=== PATIENT | male | born 1970 | race Caucasian/White ===

== ENCOUNTER 2019-03-05 04:30 | Inpatient (IN) | payer BC, SELFPAY ==
[2019-03-05] VITALS (18 sets, daily range): BP systolic 113–154; BP diastolic 75–108; PULSE 88–123; RESP 12–26; TEMP 36.4–37.2; O2SAT 88–865; BMI 30.8; BMI 29.5
--- NOTE | 2019-03-05 04:44 | RAD_ITS ---
HISTORY: left foot and ankle pain after fall COMPARISON: None FINDINGS: XR left foot 2 views Crosstable lateral view obtained for the AP projection of the left foot. Left ankle fracture dislocation with posterior dislocation of the foot in relation to the distal talus. Left ankle trimalleolar fracture. At the foot, oblique fracture of the proximal left second metatarsal with mild lateral angulation of the distal fracture fragment. Additional transverse nondisplaced fracture of the proximal left third metatarsal. The metatarsals show no suspicious displacement to suggest Lisfranc type injury. No dislocation of the foot. Small plantar calcaneal spur. The plantar arch is maintained. RAD/Foot 2 Views IMPRESSION: 1. Acute fracture of the proximal left second and third metatarsals. No Lisfranc type dislocations seen. 2. Left ankle fracture dislocation. Details above. at 0601 Reported and signed by: Srini Mcfarland MD Electronically Signed: Srini Mcfarland, at 6:00 EDT Tel , Service support ,
--- NOTE | 2019-03-05 05:05 | RAD_ITS ---
HISTORY: left foot and ankle pain after fall COMPARISON: None FINDINGS: XR left ankle 2 views Crosstable lateral view obtained with partial obscuration of the left fibula by blanket-like material. Left ankle trimalleolar fracture dislocation with posterior dislocation of the foot in relation to the distal talus. Comminuted fracture of the medial malleolus and additional fractures of the posterior malleolus and distal left fibula. The fibular fracture is not well seen and appears to represent a comminuted fracture including butterfly fracture fragment with posterior displacement and posterior angulation of the major distal fracture fragment. RAD/Ankle 2 Views IMPRESSION: Left ankle fracture dislocation with trimalleolar fracture. Details above. at 0524 Reported and signed by: Srini Mcfarland MD Electronically Signed: Srini Mcfarland, at 5:54 EDT Tel , Service support ,
[2019-03-05] MEDS: Propofol 200 MG/20 ML Vial IV BOLUS (05:25)
--- NOTE | 2019-03-05 05:32 | ED.RN ---
0526 FOOT/ANKLE REDUCED BY DR. SARAVIA. PT HAD SEIZURE WITH EMESIS. SUCTION PROVIDED. CALLED FOR ADDITIONAL STAFF. PT BECAME CYANIC, USED AMBU-BAG FOR AIRWAY SUPPORT WITH RT AT BEDSIDE. 0532 2MG OF ATIVAN GIVEN BY MARIA DOLORES Rudolph RN. 0535 PT POST-ICTAL WITH WET COUGH. DR. SARAVIA APPLYING SPLINTING MATERIAL.
[2019-03-05] MEDS: LORazepam 2 MG/ML Syringe IV (05:35)
[2019-03-05] MEDS: Ondansetron 4 MG/2 ML Vial IV (05:35)
--- NOTE | 2019-03-05 05:44 | EKG12_ITS ---
Test Reason : OTHER Blood Pressure : / mmHG Vent. Rate : 106 BPM Atrial Rate : 106 BPM P-R Int : 116 ms QRS Dur : 086 ms QT Int : 350 ms P-R-T Axes : 072 036 071 degrees QTc Int : 464 ms Sinus tachycardia Nonspecific T wave abnormality Abnormal ECG Confirmed by JAMIR BURKETT ([id number]), supervising editor trailer JOSE ARMANDO MUNOZ ([id number]) on 03/10/2019 3:10:43 PM Referred By: RITA Confirmed By:JAMIR BURKETT
--- NOTE | 2019-03-05 05:44 | RAD_ITS ---
HISTORY: aspiration left ankle and left foot fractures EXAM:XR Chest 1 View portable COMPARISON: None FINDINGS: EKG leads in place. Normal heart and mediastinum. No vascular congestion, pleural effusion, or pulmonary infiltration. No pneumothorax. The bony thorax appears intact. RAD/Chest 1 View (Portable) IMPRESSION: No acute cardiopulmonary disease. at 0620 Reported and signed by: Srini Mcfarland MD Electronically Signed: Srini Mcfarland, at 6:19 EDT Tel , Service support ,
--- NOTE | 2019-03-05 05:49 | ED.RN ---
PT CONTINUES POST-ICTAL WITH SNORING RESPIRATIONS AND AROUSAL TO PAIN. NEW ORDERS ENTERED.
--- NOTE | 2019-03-05 05:50 | RAD_ITS ---
HISTORY: left ankle post reduction COMPARISON: Left ankle 0454 hours FINDINGS: XR left ankle 2 views 0551 hours 2 views of the left ankle obtained following closed reduction and cast fixation. Bony detail is limited by the cast material. Successful reduction of the previously seen posterior dislocation of the left foot. Left ankle trimalleolar fracture. The distal fibular fracture is not well seen on the AP view and appears to represent a comminuted, mildly angulated fracture as seen on the lateral view. RAD/Ankle 2 Views IMPRESSION: Left ankle fracture dislocation, status post successful closed reduction of the tibiotalar joint. Cast material in place and this obscures detail. at 0618 Reported and signed by: Srini Mcfarland MD Electronically Signed: Srini Mcfarland, at 6:17 EDT Tel , Service support ,
[2019-03-05 05:59] LABS: Absolute Lymphocyte Count 2.91 X10^3/ul (0.83-4.51); Absolute Neutrophil Count 18.9 X10^3/uL (2.0-7.7); Basophil# 0.05 X10^3/uL; Basophil% 0.2 % (0-1); Eosinophil# 0.36 X10^3/uL; Eosinophils% 1.5 % (0-5); Hematocrit 42.3 % (40-54); Hemoglobin 14.6 g/dl (13.0-16.5); Lymphocyte # 2.91 X10^3/ul (4.0); Lymphocyte % 12.2 % (19-41); Mean Corp Hgb Conc 34.5 g/gl (32-36); Mean Corpuscular Hgb 30.8 pg (27.0-32.0); Mean Corpuscular Volume 89.2 fL (80-94); Mean Platelet Vol. 11.1 fl (6.2-12.0); Monocyte% 6.3 % (0-10); Neutrophil # 18.89 X10^3/uL (2.7-7.7); Neutrophil % 79.5 % (47-70); Platelet Count 211 K/mm3 (150-450); RBC Distribution Width CV 13.1 % (11.6-14.6); RBC Distribution Width SD 42.7 fl (35.1-43.9); Red Blood Count 4.74 M/mm3 (4.6-6.2); White Blood Count 23.8 K/mm3 (4.4-11.0)
[2019-03-05 06:03] LABS: POSITIVE COUNT NO; POSITIVE DIFFERENTIAL NO; POSITIVE MORPHOLOGY NO
[2019-03-05 06:14] LABS: Anion Gap 11 (5-15); BUN 19 mg/dL (7-18); BUN/Creat Ratio 13.7 RATIO (10-20); Calcium,Total 8.3 mg/dL (8.5-10.1); Chloride 107 mmol/L (98-107); Creatinine, Serum 1.39 mg/dL (0.70-1.30); EST Glomerular Filtration Rate 58 mL/min (>60); Est Glom Filt Rate - Afr Amer 70 mL/min (>60); Estimated Creatinine Clearance 61.42 ml/min; Glucose 136 mg/dL (74-106); Potassium 3.7 mmol/L (3.5-5.1); Sodium Level 141 mmol/L (136-145)
[2019-03-05] MEDS: 0.9% Normal Saline 1,000 ML 999 ML IV (06:22)
--- NOTE | 2019-03-05 06:27 | ED.RN ---
PT CONTINUES TO USE OPEN MOUTH BREATHING WITH SNORING RESPIRATIONS. O2 SAT DOWN TO 86%, NON REBREATHER APPLIED WITH O2 BACK UP TO 95%. AROUSAL TO PAINFUL STIMULI ONLY.
--- NOTE | 2019-03-05 06:58 | ED.VISSUMM ---
- ER Visit Summary Date of Service: 03/05/19 Chief Complaint: Left ankle injury History of Present Illness: The patient is a 48 M who presents with a left ankle injury. He was stepping down out of his camper when he twisted his ankle and fell. He was brought in by EMS. He was placed in a vacuum splint and also given IV Dilaudid. His pain is moderate currently. He did have significant improvement with medication. He denies any other injuries. No head injury no loss of consciousness no chest pain back pain or injury to the other extremities. Physical Examination: Afebrile vitals normal No distress Moist mucous membranes Heart regular rate and rhythm Lungs are clear Abdomen soft There is a left ankle deformity he has tenderness diffusely in the ankle as well as the foot he has an easily palpable dorsalis pedis pulse with brisk capillary refill normal sensation he is able to wiggle his toes Test Results: Initial left ankle x-ray does show a trimalleolar ankle fracture dislocation. Foot x-ray shows fractures of the proximal left second and third metatarsals. Repeat ankle x-ray shows successful reduction. Chest x-ray shows no acute process. Labs notable for white count 23.8, creatinine 1.39, alcohol 99. Emergency Department Course and Treatment: After informed consent with discussion of effects and risks of procedural sedation including hypotension or respiratory failure patient underwent procedural sedation with IV propofol. He was given a total of 150 mg of propofol. His ankle was easily reduced. While splinting the ankle however the patient exhibited tonic-clonic seizure-like activity and began to vomit. He rapidly desaturated. He required [id number] ventilation. He was placed on a nonrebreather. I was able to place him in a posterior plaster splint with stirrup at this point laboratory studies EKG chest x-ray were obtained. He does have a leukocytosis of 23.8 which may be reactive. He was also given Unasyn due to concern for aspiration. Patient will be discussed with the hospitalist and admitted for further observation. I did also speak to Dr. Camejo regarding the patient's ankle fracture and foot fracture. Treatment Plan: [] Disposition: Admit Impression: Trimalleolar ankle fracture dislocation Left second and third metatarsal fractures Adverse reaction to propofol Acute respiratory failure Ankle fracture dislocation reduction by emergency physician Splint fabrication by emergency physician This note was generated with Dragon dictation software. It may contain incorrect words, spelling, and punctuation that were not noted in review of the chart prior to signing ED Disposition - Plan for ED Patient: Referrals: Tara Romero MD [Primary Care Provider] -
--- NOTE | 2019-03-05 07:17 | NURSING ---
DR ELLSWORTH FOR DR SARAVIA
--- NOTE | 2019-03-05 07:28 | HP.PCM_ITS ---
Problem List (1) Aspiration into airway Status: Acute (2) Ankle fracture Status: Acute (3) Acute respiratory failure with hypoxia Status: Acute History of Present Illness Date of Admission: 03/05/19 Chief Complaint: Ankle fracture The patient is a 48 year old M who walked out of a camper while slightly intoxicated and twisted his foot on the stairs and fell down the stairs at which point he broke his ankle. In the ER he was given propofol to be able to reduce his ankle and in the after the reduction he seized and possibly aspirated because he became hypoxic and in respiratory distress down to 86% on room air, necessitating being placed on nonrebreather. He continued to have episodes of what appeared to be like a seizure in the ER she was given dose of Ativan. His ankle was successfully reduced and placed in a cast, and the case was discussed with Ortho which did agree to come and see the patient. Past Medical History Allergies bee venom protein (honey bee) Allergy (Verified 03/05/19 04:34) Anaphylaxis propofol Allergy (Verified 03/05/19 05:41) Other SEIZURE pseudoephedrine [From Actifed] Allergy (Verified 03/05/19 04:34) Anaphylaxis triprolidine [From Actifed] Allergy (Verified 03/05/19 04:34) Anaphylaxis Home Medications: Ambulatory Orders Medication Instructions Recorded Atorvastatin Calcium 1 tab PO DAILY 03/05/19 Insulin Aspart [Novolog Flexpen See Protocol SC TIDCM 03/05/19 ([facility])] Insulin Detemir [Levemir ([facility])] 20 units SC QHS 03/05/19 Insulin Detemir [Levemir ([facility])] 30 units SC DAILY 03/05/19 Lisinopril [Zestril] 10 tab PO DAILY 03/05/19 Metformin HCl [Glucophage] 1 tab PO BIDCM 03/05/19 Sertraline HCl [Zoloft] 1 tab PO QHS 03/05/19 Surgical History: - - Carpal tunnel Smoking Status: Current every day smoker Tobacco Use: Cigarettes Alcohol: Occasional Drugs: Marijuana - *Family History Maternal History Items: Diabetes, Heart Disease Paternal History Items: Diabetes, Heart Disease Review of Systems Constitutional: Denies: Chills, Fever, Weight Change HEENT: Denies: Head Aches, Sinus Congestion, Sinus Drainage Cardiovascular: Denies: Chest Pain, Palpitations Respiratory: Denies: Cough, Shortness of breath at rest, Sputum production Gastrointestinal: Denies: Abdominal Pain, Nausea, Vomiting Genitourinary: Denies: Dysuria Musculoskeletal: Reports: Foot Pain, Leg Pain. Denies: Joint Pain, Joint Tenderness Skin: Denies: Rash, Wounds Neurological: Denies: Numbness, Tingling, Focal weakness Psychiatric: Denies: Anxiety, Depression Hematologic/ Lymphatic: Denies: Easy Bruising, Easy Bleeding VTE Information - Inpt Only VTE Present on Admission: No Patient Problems: Active and Suspected Problems Aspiration into airway (Acute) Ankle fracture (Acute) Acute respiratory failure with hypoxia (Acute) - Physical Exam General: Alert, Oriented x3, Cooperative, No apparent distress HEENT: Atraumatic, PERRLA, EOMI, Normocephalic Oral: Moist Mucosa Neck: Supple, No JVD Lungs: Clear to auscultation, Normal air movement, No rhonchi, No wheeze, No rales, Diminished Cardiovascular: Regular rate, Regular Rhythm, Normal S1, Normal S2, No murmurs Abdomen: Soft, Non Tender, Non-Distended, No Hepato-splenomegaly Extremities: No edema, Capillary Refill Less than 3 Seconds, Tenderness - Left ankle. In a cast but is able to feel his toes and wiggle his toes Skin: No rashes, No breakdown Neurological: Neuro grossly intact, Sensory exam intact to light touch and pain Psych/Mental Status: Normal Affect, Appropriate Vital Signs Temp Pulse Resp BP Pulse Ox 98.6 F 102 H 23 H 141/90 H 98 03/05/19 04:31 03/05/19 07:07 03/05/19 07:07 03/05/19 07:07 03/05/19 07:07 Oxygen Flow Rate (L/min) [1] 2 Oxygen Flow Rate (L/min) 6 Oxygen Delivery Method [1] Nasal Cannula Oxygen Delivery Method [2] Ambu-Bag Oxygen Delivery Method Nasal Cannula Weight: 196 lb 10.437 oz Body Mass Index (BMI) 30.8 Laboratory Tests Past 24 Hrs 03/05/19 03/05/19 03/05/19 05:48 05:48 05:48 WBC 23.8 H RBC 4.74 Hgb 14.6 Hct 42.3 MCV 89.2 MCH 30.8 MCHC 34.5 RDW 13.1 RDW Differential 42.7 Plt Count 211 MPV 11.1 Immature Gran % (Auto) 0.300 Neut % (Auto) 79.5 H Lymph % (Auto) 12.2 L [place] % (Auto) 6.3 Eos % (Auto) 1.5 Baso % (Auto) 0.2 Absolute Neuts (auto) 18.9 H Absolute Lymphs (auto) 2.91 Total Counted Not Reportable Sodium 141 Potassium 3.7 Chloride 107 Carbon Dioxide 23.0 Anion Gap 11 BUN 19 H Creatinine 1.39 H Estim Creat Clear Calc 61.42 Est GFR (MDRD) Af Amer 70 Est GFR (MDRD) Non-Af 58 L BUN/Creatinine Ratio 13.7 Glucose 136 H Calcium 8.3 L Ethyl Alcohol 99.0 Assessment/Plan All Active Problems Aspiration into airway (Acute) Ankle fracture (Acute) Acute respiratory failure with hypoxia (Acute) 1. Left ankle fracture after falling down stairs at a camper/acute hypoxic respiratory failure secondary to possible aspiration/?Seizure -He had his leg sat in the ER and was casted -Orthopedic surgery was consulted and they recommend seeing the patient in the office on Sunday, his leg is too swollen for any operative intervention -We will continue with oxycodone and IV pain medication as needed for pain control -In the ER he was given propofol for sedation so they could set his ankle and it appeared that he sees twice, he was given a dose of Ativan -He denies any history of seizure disorder either in him or his family, and he does not take any medications that put him at risk for seizures -He did appear to aspirate and his pulse ox went down to 86% in the ER and he had to be placed on nonrebreather and he responded appropriately. -Started on Unasyn as prophylaxis for aspiration and his current oxygen requirements are 2 L nasal cannula -We will plan to discharge on Augmentin as an outpatient for 7 days -Leukocytosis I believe is reactionary to his fracture will recheck in the morning 2. IDDM 2 -136 on admission, he is on long-acting and a sliding scale which we will continue here -We will hold his metformin until after discharge 3. Alcohol use -He states that he does not drink every day and he does drink he may be has 2-4 beers -Blood alcohol level on admission was 99, will not place on alcohol withdrawal precautions at this time 4. HTN/HLD -Blood pressure is stable we will continue with his home lisinopril, will continue to monitor renal function -Continue with Lipitor DVT: Lovenox Code Visit Inpatient E&M: 51882 Init Hosp L3
--- NOTE | 2019-03-05 09:40 | CON.PCM_ITS ---
Reason for Consult Date of Consultation: 03/05/19 History of Present Illness: The patient is a 48 year old M who fell coming out of trailer, questionable toxicity. ER found to have trimall fx which was reduced in ER and patient seized so was admitted for workup/eval. seen today c/o ankle pain, denies head trauma, loc, headache, fever, chills or other constitutional symptoms. see chart for further details.[] Past Medical History Allergies bee venom protein (honey bee) Allergy (Verified 03/05/19 04:34) Anaphylaxis propofol Allergy (Verified 03/05/19 05:41) Other SEIZURE pseudoephedrine [From Actifed] Allergy (Verified 03/05/19 04:34) Anaphylaxis triprolidine [From Actifed] Allergy (Verified 03/05/19 04:34) Anaphylaxis Home Medications: Ambulatory Orders Medication Instructions Recorded RX: Atorvastatin Calcium 40 mg PO QHS 03/05/19 RX: Insulin Aspart [Novolog See Protocol SC TIDCM 03/05/19 Flexpen] RX: Insulin Detemir [Levemir 20 units SC QHS 03/05/19 FlexPen] RX: Insulin Detemir [Levemir 30 units SC DAILY 03/05/19 FlexPen] RX: Lisinopril [Zestril] 10 tab PO DAILY 03/05/19 RX: Sertraline HCl [Zoloft] 1 tab PO QHS 03/05/19 RX: Sitagliptin Phos/Metformin HCl 1 tab PO BID 03/05/19 [Janumet 50-1,000 mg Tablet] Amoxicillin/Potassium Clav 1 each PO BID #10 tablet 03/06/19 [Augmentin 875-125 Tablet] RX: Oxycodone [Oxyir] 10 mg PO Q4H PRN PRN 5 Days #30 tab 03/06/19 Smoking Status: Current every day smoker Tobacco Use: Cigarettes Alcohol: Occasional Drugs: None - *Family History Maternal History Items: Diabetes, Heart Disease Paternal History Items: Diabetes, Heart Disease Review of Systems Constitutional: Denies: Chills, Fever, Weight Change HEENT: Denies: Head Aches, Sinus Congestion, Sinus Drainage Cardiovascular: Denies: Chest Pain, Palpitations Respiratory: Denies: Cough, Shortness of breath at rest, Sputum production Gastrointestinal: Denies: Abdominal Pain, Nausea, Vomiting Genitourinary: Denies: Dysuria Musculoskeletal: Reports: Joint Pain. Denies: Joint Tenderness Skin: Denies: Rash, Wounds Neurological: Denies: Numbness, Tingling, Focal weakness Psychiatric: Denies: Anxiety, Depression, Homicidal Ideations, Suicidal Ideations Hematologic/ Lymphatic: Denies: Easy Bruising, Easy Bleeding - Physical Exam General: Alert, Oriented x3, Cooperative HEENT: Atraumatic, PERRLA, EOMI, Normocephalic Neck: Supple, No JVD, Negative Carotid Bruits Lungs: Clear to auscultation, Normal air movement Cardiovascular: Regular rate, No murmurs Abdomen: Bowel Sounds Present, Soft, Non Tender Extremities: No edema, Capillary Refill Less than 3 Seconds Skin: No rashes, No breakdown Musculoskeletal: Tenderness - <2s cr, compts soft, left ankle ttp, secondary survey negative Neurological: Cranial nerves II-XII grossly intact Psych/Mental Status: Normal Affect, Appropriate Vital Signs Temp Pulse Resp BP Pulse Ox 98.6 F 102 H 22 H 137/95 H 98 03/05/19 04:31 03/05/19 07:38 03/05/19 07:38 03/05/19 07:38 03/05/19 07:50 Oxygen Flow Rate (L/min) [1] 2 Oxygen Flow Rate (L/min) 4 Oxygen Delivery Method [1] Nasal Cannula Oxygen Delivery Method [2] Ambu-Bag Oxygen Delivery Method Nasal Cannula Weight: 196 lb 10.437 oz Body Mass Index (BMI) 30.8 Laboratory Tests Past 24 Hrs 03/05/19 03/05/19 03/05/19 05:48 05:48 05:48 WBC 23.8 H RBC 4.74 Hgb 14.6 Hct 42.3 MCV 89.2 MCH 30.8 MCHC 34.5 RDW 13.1 RDW Differential 42.7 Plt Count 211 MPV 11.1 Immature Gran % (Auto) 0.300 Neut % (Auto) 79.5 H Lymph % (Auto) 12.2 L [place] % (Auto) 6.3 Eos % (Auto) 1.5 Baso % (Auto) 0.2 Absolute Neuts (auto) 18.9 H Absolute Lymphs (auto) 2.91 Total Counted Not Reportable Sodium 141 Potassium 3.7 Chloride 107 Carbon Dioxide 23.0 Anion Gap 11 BUN 19 H Creatinine 1.39 H Estim Creat Clear Calc 61.42 Est GFR (MDRD) Af Amer 70 Est GFR (MDRD) Non-Af 58 L BUN/Creatinine Ratio 13.7 Glucose 136 H Calcium 8.3 L Ethyl Alcohol 99.0 Assessment/Plan All Active Problems Aspiration into airway (Acute) Ankle fracture (Acute) Acute respiratory failure with hypoxia (Acute) trimall fx dislocation/reducn in ER elevate ankle above heart as much as possible for the next week follow up in office for skin checks as quite swollen this am and not a good surgical candidate until swelling decreases Follow-up in my office on Sunday next Emphasized over and over how important is to elevate the ankle above his heart to decrease swelling so that we can perform surgery with less risk to patient from infection standpoint. [phone]
[2019-03-05] MEDS: oxyCODONE 5 MG Tablet 10 MG PO ×4 (11:08→23:41)
[2019-03-05] MEDS: 0.9% Normal Saline 1,000 ML 100 ML IV ×2 (11:27→20:19)
[2019-03-05] MEDS: Enoxaparin 40 MG/0.4 ML Syringe SC (11:33)
[2019-03-05 13:02] LABS: Bedside Glucose 215 mg/dL (70-110)
[2019-03-05 16:56] LABS: Bedside Glucose 188 mg/dL (70-110)
[2019-03-05] MEDS: Acetaminophen 325 MG Tablet 650 MG PO (20:20)
[2019-03-05] MEDS: Atorvastatin Calcium 40 MG Tablet PO (22:03)
[2019-03-05] MEDS: Sertraline 50 MG Tablet PO (22:04)
[2019-03-05 22:06] LABS: Bedside Glucose 202 mg/dL (70-110)
[2019-03-06] VITALS (8 sets, daily range): BP systolic 142–152; BP diastolic 80–100; PULSE 96–116; RESP 16–18; TEMP 36.8–37; O2SAT 93–99
[2019-03-06] MEDS: Acetaminophen 325 MG Tablet 650 MG PO ×3 (03:41→16:02)
[2019-03-06] MEDS: oxyCODONE 5 MG Tablet 10 MG PO ×4 (03:41→16:02)
[2019-03-06] MEDS: 0.9% Normal Saline 1,000 ML 100 ML IV (05:15)
[2019-03-06 06:26] LABS: Absolute Lymphocyte Count 1.37 X10^3/ul (0.83-4.51); Absolute Neutrophil Count 10.2 X10^3/uL (2.0-7.7); Basophil# 0.04 X10^3/uL; Basophil% 0.3 % (0-1); Eosinophil# 0.31 X10^3/uL; Eosinophils% 2.3 % (0-5); Hematocrit 39.2 % (40-54); Hemoglobin 13.5 g/dl (13.0-16.5); Lymphocyte # 1.37 X10^3/ul (4.0); Lymphocyte % 10.3 % (19-41); Mean Corp Hgb Conc 34.4 g/gl (32-36); Mean Corpuscular Hgb 30.2 pg (27.0-32.0); Mean Corpuscular Volume 87.7 fL (80-94); Mean Platelet Vol. 11.7 fl (6.2-12.0); Monocyte# 1.34 X10^3/uL; Monocyte% 10.1 % (0-10); Neutrophil # 10.16 X10^3/uL (2.7-7.7); Neutrophil % 76.8 % (47-70); POSITIVE COUNT NO; POSITIVE DIFFERENTIAL NO; POSITIVE MORPHOLOGY NO; Platelet Count 177 K/mm3 (150-450); RBC Distribution Width CV 12.9 % (11.6-14.6); RBC Distribution Width SD 40.2 fl (35.1-43.9); Red Blood Count 4.47 M/mm3 (4.6-6.2); White Blood Count 13.3 K/mm3 (4.4-11.0)
[2019-03-06 06:40] LABS: Anion Gap 4 (5-15); BUN 15 mg/dL (7-18); BUN/Creat Ratio 11.2 RATIO (10-20); Calcium,Total 8.2 mg/dL (8.5-10.1); Chloride 104 mmol/L (98-107); Creatinine, Serum 1.34 mg/dL (0.70-1.30); EST Glomerular Filtration Rate 61 mL/min (>60); Est Glom Filt Rate - Afr Amer 73 mL/min (>60); Estimated Creatinine Clearance 63.72 ml/min; Glucose 219 mg/dL (74-106); Potassium 4.5 mmol/L (3.5-5.1); Sodium Level 135 mmol/L (136-145)
[2019-03-06 06:46] LABS: Bedside Glucose 214 mg/dL (70-110)
[2019-03-06] MEDS: Lisinopril 10 MG Tablet PO (09:23)
--- NOTE | 2019-03-06 09:58 | CASEMGMT ---
CLAUDE SANTOYO assessment: Face to Face with patient for initial transition planning/care coordination assessment. CLAUDE SANTOYO introduced self and role at [facility], pt voices understanding and consents to assessment at this time. Pt is sitting up in chair in no distress at this time. Pt does c/o pain in LLE. Pt is A/Ox4 at this time and answers all questions appropriately at this time. Care providers, pharmacy, and demographics verified at this time. PCP: Tara Romero Specialists: wayne Tan at [facility] Preferred Pharmacy: [facility] [place]: [place] Prescription Benefit: [place] Living Will/HPOA: Pt states does not have LW/HPOA and declines info at this time. LNOK: Tara Ugarteo, Living Arrangements: Pt states lives with and 2 kids in 2 story home and states no concerns at home at this time. Pt states that he can sleep on the main level but will need to go upstairs to bathroom for shower. Pt states is normally independent with ADL's. Transportation: Pt states drives self and states no transportation concerns at this time. DME/HHC: Pt states has crutches at home and is comfortable using them at discharge. Pt states no hx of HHC or SNF in the past. Pt states no concerns with going home at time of discharge. 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 Pt states smokes about a pack/day and drinks 'socially.' Pt states no further concerns/needs at this time. CM to follow for any further questions/concerns/needs at this time. Advised pt to ask for CM if any further questions/concerns/needs arise, voices understanding. Pt Goal: [place]DE [place]OYO
--- NOTE | 2019-03-06 10:12 | DCINST_ITS ---
- Discharge Diagnoses Current Active Problems: Current Active and Chronic Problems Aspiration into airway (Acute) Ankle fracture (Acute) Acute respiratory failure with hypoxia (Acute) You will use the following diet at home:: Calorie/Carbohydrate Controlled (specify 1200, 1400, etc) Your food should be the consistency of: Regular Your liquids should be the consistency of: Regular/Thin Discharge Activity: May not drive while taking narcotic pain medications. Call your doctor if you observe: Fever of 101 or Higher, Shortness of breath, Dizziness, Fainting spells, Swelling in the ankles, Chest pain, Increased palpi tations (irregular heartbeat) Allergies/Adverse Reactions: Allergies bee venom protein (honey bee) Allergy (Verified 03/05/19 04:34) Anaphylaxis propofol Allergy (Verified 03/05/19 05:41) Other SEIZURE pseudoephedrine [From Actifed] Allergy (Verified 03/05/19 04:34) Anaphylaxis triprolidine [From Actifed] Allergy (Verified 03/05/19 04:34) Anaphylaxis Medications to take at Discharge Atorvastatin Calcium 40 mg PO QHS 03/05/19 Insulin Aspart [Novolog Flexpen] See Protocol SC TIDCM 03/05/19 Insulin Detemir [Levemir FlexPen] 20 units SC QHS 03/05/19 Insulin Detemir [Levemir FlexPen] 30 units SC DAILY 03/05/19 Lisinopril [Zestril] 10 tab PO DAILY 03/05/19 Sertraline HCl [Zoloft] 1 tab PO QHS 03/05/19 Sitagliptin Phos/Metformin HCl [Janumet 50-1,000 mg Tablet] 1 tab PO BID 03/05/19 Amoxicillin/Potassium Clav [Augmentin 875-125 Tablet] 1 each PO BID #10 tablet 03/06/19 Oxycodone [Oxyir] 10 mg PO Q4H PRN PRN 5 Days #30 tab 03/06/19 The following prescriptions were given: Oxycodone [Oxyir] 10 mg PO Q4H PRN PRN 5 Days #30 tab PRN Reason: Severe Pain (6-10/10) Amoxicillin/Potassium Clav [Augmentin 875-125 Tablet] 1 each PO BID #10 tablet Primary Care Physician: Tara Romero MD [Primary Care Provider] - Please follow up with your Primary Care Physician in: 3-5 days Test Results: Test results from this visit will be discussed in further detail at your follow- up appointment, if applicable. Please Follow Up With: Shilpi Camejo DO When: Sunday-Call for appointment
--- NOTE | 2019-03-06 10:13 | DS.PCM_ITS ---
Discharge Date and Diagnosis - Problem List Patient Problems: Active and Suspected Problems Aspiration into airway (Acute) Ankle fracture (Acute) Acute respiratory failure with hypoxia (Acute) Date of Admission: 03/05/19 Date of Discharge: 03/06/19 - Primary Discharge Diagnosis Active and Suspected Problems Aspiration into airway (Acute) Ankle fracture (Acute) Acute respiratory failure with hypoxia (Acute) Hospital Course and Treatment Imaging Results: XR L foot: IMPRESSION: 1. Acute fracture of the proximal left second and third metatarsals. No Lisfranc type dislocations seen. 2. Left ankle fracture dislocation. Details above. XR L Ankle: Left ankle trimalleolar fracture dislocation with posterior dislocation of the foot in relation to the distal talus. Comminuted fracture of the medial malleolus and additional fractures of the posterior malleolus and distal left fibula. The fibular fracture is not well seen and appears to represent a comminuted fracture including butterfly fracture fragment with posterior displacement and posterior angulation of the major distal fracture fragment. XR L Ankle: IMPRESSION: Left ankle fracture dislocation, status post successful closed reduction of the tibiotalar joint. Cast material in place and this obscures detail. Consults: Ortho Operations: None Procedures: - - Ankle reduction Summary of Care Provided: Per HPI: The patient is a 48 year old M who walked out of a camper while slightly intoxicated and twisted his foot on the stairs and fell down the stairs at which point he broke his ankle. In the ER he was given propofol to be able to reduce his ankle and in the after the reduction he seized and possibly aspirated because he became hypoxic and in respiratory distress down to 86% on room air, necessitating being placed on nonrebreather. He continued to have episodes of what appeared to be like a seizure in the ER she was given dose of Ativan. His ankle was successfully reduced and placed in a cast, and the case was discussed with Ortho which did agree to come and see the patient. Hospital Course: 1. Left ankle fracture after falling down stairs at a camper/acute hypoxic respiratory failure secondary to possible aspiration/? [id number] male who was at his camper and he was trying to walk down the stairs and he twisted his ankle and fell and broke his ankle. He presented to the ER where they given propofol so they could reduce his ankle and and during the procedure he had 2 episodes of what appeared to E like a seizure and was given Ativan. During his episodes of seizure-like activity, he vomited and then he dropped his oxygen sat to 86% so he was placed on nonrebreather and they felt that he may have aspirated and he was started on Unasyn. He feels much better today and is back to baseline and would like to go home. I discussed with him that he will need to follow-up with orthopedic surgery on Sunday to evaluate for the possibility of surgery, in the meantime he can take oxycodone for pain as well as interspersed with ibuprofen 400 to 600 mg 3 times daily. Also will provide him with Augmentin for 5 more days to continue for prophylaxis of aspiration. He improved much faster than anticipated. 2. His other medical diagnoses were evaluated and his home medications were continued where appropriate This was discussed with the patient and he expressed understanding and agreement with the plan. Patient Problems: Active and Suspected Problems Aspiration into airway (Acute) Ankle fracture (Acute) Acute respiratory failure with hypoxia (Acute) Objective: General: Alert, Oriented x3, Cooperative, No apparent distress HEENT: Atraumatic, PERRLA, EOMI, Normocephalic Oral: Moist Mucosa Neck: Supple, No JVD Lungs: Clear to auscultation, Normal air movement, No rhonchi, No wheeze, No rales, Diminished Cardiovascular: Regular rate, Regular Rhythm, Normal S1, Normal S2, No murmurs Abdomen: Soft, Non Tender, Non-Distended, No Hepato-splenomegaly Extremities: No edema, Capillary Refill Less than 3 Seconds, Tenderness - Left ankle. In a cast but is able to feel his toes and wiggle his toes Skin: No rashes, No breakdown Neurological: Neuro grossly intact, Sensory exam intact to light touch and pain Psych/Mental Status: Normal Affect, Appropriate - Physical Exam Vital Signs Temp Pulse Resp BP Pulse Ox 98.6 F 99 18 152/100 H 93 03/06/19 08:05 03/06/19 08:05 03/06/19 08:05 03/06/19 08:05 03/06/19 08:05 Oxygen Flow Rate (L/min) [1] 2 Oxygen Flow Rate (L/min) 2 Oxygen Delivery Method [1] Nasal Cannula Oxygen Delivery Method [2] Ambu-Bag Oxygen Delivery Method Room Air Weight: 188 lb 7.924 oz Body Mass Index (BMI) 29.5 Intake and Output for Last 24 Hours 03/04/19 03/05/19 03/06/19 23:59 23:59 23:59 Intake Total 1454 / 1454 1501 / 1501 Output Total 3050 / 3050 1325 / 1325 Balance -1596 / -1596 176 / 176 Laboratory Tests Past 24 Hrs 03/06/19 03/06/19 05:50 05:50 WBC 13.3 H RBC 4.47 L Hgb 13.5 Hct 39.2 L MCV 87.7 MCH 30.2 MCHC 34.4 RDW 12.9 RDW Differential 40.2 Plt Count 177 MPV 11.7 Immature Gran % (Auto) 0.200 Neut % (Auto) 76.8 H Lymph % (Auto) 10.3 L [place] % (Auto) 10.1 H Eos % (Auto) 2.3 Baso % (Auto) 0.3 Absolute Neuts (auto) 10.2 H Absolute Lymphs (auto) 1.37 Total Counted Not Reportable Sodium 135 L Potassium 4.5 Chloride 104 Carbon Dioxide 27.0 Anion Gap 4 L BUN 15 Creatinine 1.34 H Estim Creat Clear Calc 63.72 Est GFR (MDRD) Af Amer 73 Est GFR (MDRD) Non-Af 61 BUN/Creatinine Ratio 11.2 Glucose 219 H Calcium 8.2 L POC Glucose 03/06/19 03/05/19 03/05/19 06:32 22:00 16:52 POC Glucose 214 H 202 H 188 H 03/05/19 11:50 POC Glucose 215 H Discharge Activity: May not drive while taking narcotic pain medications. Call your doctor if you observe: Fever of 101 or Higher, Shortness of breath, Dizziness, Fainting spells, Swelling in the ankles, Chest pain, Increased palpitations (irregular heartbeat) Home Medications: Medications to take at Discharge Atorvastatin Calcium 40 mg PO QHS 03/05/19 Insulin Aspart [Novolog Flexpen] See Protocol SC TIDCM 03/05/19 Insulin Detemir [Levemir FlexPen] 20 units SC QHS 03/05/19 Insulin Detemir [Levemir FlexPen] 30 units SC DAILY 03/05/19 Lisinopril [Zestril] 10 tab PO DAILY 03/05/19 Sertraline HCl [Zoloft] 1 tab PO QHS 03/05/19 Sitagliptin Phos/Metformin HCl [Janumet 50-1,000 mg Tablet] 1 tab PO BID 03/05/19 Amoxicillin/Potassium Clav [Augmentin 875-125 Tablet] 1 each PO BID #10 tablet 03/06/19 Oxycodone [Oxyir] 10 mg PO Q4H PRN PRN 5 Days #30 tab 03/06/19 Following Prescrptions Were Given to Patient: Oxycodone [Oxyir] 10 mg PO Q4H PRN PRN 5 Days #30 tab PRN Reason: Severe Pain (-07/31) Amoxicillin/Potassium Clav [Augmentin 875-125 Tablet] 1 each PO BID #10 tablet Primary Care Physician: Tara Romero MD [Primary Care Provider] - Please follow up with your Primary Care Physician in: 3-5 days Please Follow Up With: Shilpi Camejo DO When: Sunday-Call for appointment Disposition: Home Minutes spent on discharge:: 35 Patient Condition:: Stable Medical Necessity - Tobacco Use Smoking Status: Current every day smoker Tobacco Use: Cigarettes Meaningful Use Info Meaningful Use Diagnoses (Choose all that apply): None applicable Code Visit Inpatient E&M: 51965 Disch Hosp
[2019-03-06 12:06] LABS: Bedside Glucose 210 mg/dL (70-110)
== END 2019-03-06 18:30 | disposition home or self-care (01) | DRG 562 ==
LOC: ED 04:53 → PCU 07:42
PROVIDERS: Admitting Provider Family Medicine; Emergency Provider Emergency Medicine; Family Provider Family Medicine; PCP Family Medicine; Visit Provider Family Medicine
DX: S82.852A Displaced trimalleolar fracture of left lower leg, initial encounter for closed fracture (principal); J96.01 Acute respiratory failure with hypoxia; S92.325A Nondisplaced fracture of second metatarsal bone, left foot, initial encounter for closed fracture; S92.335A Nondisplaced fracture of third metatarsal bone, left foot, initial encounter for closed fracture; W10.8XXA Fall (on) (from) other stairs and steps, initial encounter; T17.918A Gastric contents in respiratory tract, part unspecified causing other injury, initial encounter; F17.210 Nicotine dependence, cigarettes, uncomplicated
CPT/HCPCS: 36415; 71045; 73600; 73620; 80048; 80320; 82962; 85025; 93005; 97161; 97166; 99285; 99406; J7030; A4216; G0480; J0295; J2405

== ENCOUNTER 2019-03-19 06:10 | Day surgery (SDC) | payer BC, SELFPAY ==
[2019-03-11 10:28] VITALS: BMI 29.5
--- NOTE | 2019-03-11 12:30 | HP_ITS ---
Intake Vital Signs 03/11/19 Body Mass Index (BMI) 29.5 03/11/19 Height 5 ft 7 in 03/11/19 Weight: 190 lb 03/11/19 Body Mass Index (BMI) 29.7 Intake Visit Reasons: L ANKLE Is patient in pain?: Yes Pain scale (1-10): 5 Allergies bee venom protein (honey bee) Allergy (Verified 03/11/19 10:29) Anaphylaxis propofol Allergy (Verified 03/11/19 10:29) Other pseudoephedrine [From Actifed] Allergy (Verified 03/11/19 10:29) Anaphylaxis triprolidine [From Actifed] Allergy (Verified 03/11/19 10:29) Anaphylaxis Medications Atorvastatin Calcium 40 mg PO QHS 03/05/19 [History Confirmed 03/05/19] Insulin Aspart [Novolog Flexpen] See Protocol SUBCUT TIDCM 03/05/19 [History Confirmed 03/05/19] Insulin Detemir [Levemir FlexPen] 20 units SUBCUT QHS 03/05/19 [History Confirmed 03/05/19] Insulin Detemir [Levemir FlexPen] 30 units SUBCUT DAILY 03/05/19 [History Confirmed 03/05/19] Lisinopril [Zestril] 10 tab PO DAILY 03/05/19 [History Confirmed 03/05/19] Sertraline HCl [Zoloft] 1 tab PO QHS 03/05/19 [History Confirmed 03/05/19] Sitagliptin Phos/Metformin HCl [Janumet 50-1,000 mg Tablet] 1 tab PO BID 03/05/19 [History Confirmed 03/05/19] Amoxicillin/Potassium Clav [Augmentin 875-125 Tablet] 1 ea PO BID #10 tab 03/06/19 [Rx] PFSH Social History Smoking Status: Current every day smoker I have re-examined the patient. There are no clinical changes since date of exam. HPI L ANKLE : Surgical H&P: Yes Details: Parts of this documentation were recorded by a scribe, this documentation accurately reflects the service provided and the decisions made by me, Shilpi Camejo, 03/11/19 1020. BLAKE DENT is a 48 year old M here today for left ankle fracture. Patient states that he fell out of his camper last 03/05/19. Patient states that he rolled his ankle and felt a pop. He was taken to the ED where he had xrays which showed a fracture. Patient was reduced and put into a splint which he has kept on at all times. He is using crutches to ambulate and has been non- weightbearing. He is able to wiggle his toes with no pain. Patient has swelling and bruising into his toes. Patient is taking oxycodone for pain. Patient complains of a throbbing pain when his toes are not elevated. Denies numbness, tingling or other associated symptoms. ROS Titi Reports joint pain, Reports joint swelling Ortho Exam Left Foot/Ankle Skin: Yes Ecchymosis and Soft Tissue Swelling Exam: Yes Ecchymosis and Soft tissue swelling Assessment & Plan Problems 1. Closed trimalleolar fracture of left ankle, initial encounter S87.145W Plan Personally reviewed the patients xrays and post reduction xrays. See imaging report in chart for further details. Spoke with the patient about the surgery procedure and recovery. Patient has to much swelling at this time to do surgery. Explained that he has an increased risk of ankle arthritis due to his injury. He should elevate his foot as often as possible. Spoke with him about the benefits of decreased swelling. He will be non-weightbearing for 6 weeks. Patient will be off work for about 6 weeks due to him traveling. He has an increased risk of blood clots due to his traveling. He will followup on Sunday to evaluate swelling. Reviewed the pre-operative plans with the patient. Risks and benefits of the procedure were fully explained, including but not limited to infection, neurovascular injury, continued pain, arthritis, stiffness, need for further surgery, re-injury, DVT, PE, general risks of anesthesia, and loss of limb or life. The patient understands all the risks and does wish to proceed with written consent. Follow up in 1 week or sooner if pain, swelling, numbness or associated symptoms, or concerns develop. All questions answered. Patient in agreement of plan. Coding Level of Care Code Off vis,new,level 3 Diagnoses Closed trimalleolar fracture of left ankle, initial encounter S8.307D ??Encounter type: initial encounter ??Fracture type: closed 03/11/19 1807 <Electronically signed by Shilpi Camejo DO> Date [facility]
[2019-03-18 15:33] VITALS: BMI 29.5
[2019-03-19] VITALS (14 sets, daily range): BP systolic 84–125; BP diastolic 53–75; PULSE 71–98; RESP 14–16; TEMP 36.3–36.9; O2SAT 95–98; BMI 26.9
[2019-03-19 07:01] LABS: Bedside Glucose 182 mg/dL (70-110)
--- NOTE | 2019-03-19 07:30 | RAD_ITS ---
STUDY: X-RAY - LEFT ANKLE REASON FOR EXAM: ORIF. TECHNIQUE: 15 intraoperative view(s) of the ankle. COMPARISON: Radiographs 03/05/2019. FINDINGS: There are orthopedic plates and screws transfixing distal fibular and medial malleolar fractures in anatomical alignment and position. Electronically Signed: Perry Gonzalez MD at 16:01 EDT Tel , Service support , RAD/Ankle 2 Views
[2019-03-19] MEDS: Cefazolin 2 GM in 0.9% Normal Saline 100 ML IV (07:52)
[2019-03-19] MEDS: Mupirocin Ointment 22gm Tube 1 APPLIC (11:05)
--- NOTE | 2019-03-19 11:28 | DCINST_ITS ---
Discharge Diet: No Restrictions - nwb left le, leave splint intact, keep clean and dry, elevate as much as possible, call with concerns, follow up in 2 wks with kate murguia Discharge Activity: May Not Drive May shower in (days): 1 Ice area for (Minutes): 20 - Every hour while awake. Weight Bearing Status: Weight bearing as tolerated Keep extremity elevated above heart level: Operative Extremity Call your doctor if your incision/area has: Continuous Slow Oozing, Sudden Increased Bleeding, Increased Pain/ Swelling, Increased Redness, Foul Smelling Discharge Call your doctor if you observe: Fever of 101 or Higher, Coldness, Increased Pain, Numbness or Tingling, Change in Color, Calf discomfort Allergies/Adverse Reactions: Allergies bee venom protein (honey bee) Allergy (Verified 03/13/19 11:36) Anaphylaxis propofol Allergy (Verified 03/13/19 11:36) Other SEIZURE pseudoephedrine [From Actifed] Allergy (Verified 03/13/19 11:36) Anaphylaxis triprolidine [From Actifed] Allergy (Verified 03/13/19 11:36) Anaphylaxis Medications to take at Discharge Atorvastatin Calcium 40 mg PO QHS 03/05/19 Insulin Aspart [Novolog Flexpen] 5 units SC TIDCM 03/05/19 Insulin Detemir [Levemir FlexPen] 20 units SC QHS 03/05/19 Insulin Detemir [Levemir FlexPen] 30 units SC DAILY 03/05/19 Lisinopril [Zestril] 10 tab PO DAILY 03/05/19 Sertraline HCl [Zoloft] 1 tab PO QHS 03/05/19 Sitagliptin Phos/Metformin HCl [Janumet 50-1,000 mg Tablet] 1 tab PO BID 03/05/19 Oxycodone HCl/Acetaminophen [Percocet 5/325] 1 - 2 tablet PO Q6H PRN PRN 5 Days #30 tablet 03/19/19 The following prescriptions were given: Oxycodone HCl/Acetaminophen [Percocet 5/325] 1 - 2 tablet PO Q6H PRN PRN 5 Days #30 tablet PRN Reason: Pain Primary Care Physician: Tara Romero MD [Primary Care Provider] - Test Results: Test results from this visit will be discussed in further detail at your follow- up appointment, if applicable. Please Follow Up With: Shilpi Camejo, DO - [phone]
--- NOTE | 2019-03-19 11:36 | OP.PCM_ITS ---
Report of Operation Date of Procedure: 03/19/19 Pre-Operative Diagnosis: left ankle trimalleolar fracture Post-Operative Diagnosis: same Surgery/Procedure Performed:: orif left trimalleolar fracture- medial/lateral malleoli only Type of Anesthesia:: Spinal Anesthesiologist: Donnie Leigh Drains: tt-130 mins Estimated Blood Loss (mL): 25cc lr Fluids Replaced: 1600cc lr Description of Procedure: Preop note Next Patient is a 48-year-old male who fell off the step outside the front of his house immediate pain deformity was taken to the emergency room where he was found to have a trimalleolar fracture dislocation was reduced by the ER and placed in a posterior splint. He was seen in the office about a week later qu ite swollen toes neurovascularly intact however due to the swelling he had a negative wrinkle sign decision was made to wait until he had a positive wrinkle sign and less swelling. Patient then elevate his leg and followed up in the office a few days later and had positive renal sign no pain no calf pain no other constitutional symptoms. He had a positive renal stent that time decision was made to taken to the the next day to the surgery for ORIF of his left ankle. Risks benefits alternatives surgery discussed with patient. Risks including but not limited to blood loss, blood clot, infection, neurovascular, failure procedure, loss of life and loss of limb. Patient is aware like proceed with left ankle ORIF. Operative note Patient seen and examined preoperative holding. Left ankle was marked. Patient brought to the operating room placed supine on the operating table. Signing, anesthesia, antibiotics were administered. The left leg was prepped and draped in usual sterile fashion with tourniquet on his upper thigh. Marked out her incisions for lateral mid and medial malleoli fracture reduction. The left leg was then elevated exsanguinated and tourniquet was raised her pressure 250 torr. Timeout was performed. Then using a 15 blade to cut through skin dissected down to the level of the fracture site. There is callus around the fracture in the lateral aspect which was quite extensive which was gently debrided with a combination of a [place] and a dental pick. Then irrigated the fracture with copious muscle sterile saline we use reducing forceps to reduce the fracture and then picked out our 12 hole plate and bent it accordingly in order to place it posteriorly as there was a large spike posteriorly that we attempted to lag screw configuration across but because of the size of the small piece we did splinter the patient was not amenable to a lag screw configuration. We then again placed a lag screw across the fracture site at the level of the joint measured appropriately and we had good reduction of the fracture site at that point the posterior aspect of the spike was still a bit displaced we did use a bone clamp and placed the plate on top of the spike and further reduced it to bone. We then placed 3 screws just distal to the fracture site and a cancellus screw and then a screw just proximal to the end of the fracture site to ensure that we had good reduction still of the fracture site as well as appropriate length. We then filled and the 2 remaining cancellus screws distal to the fracture site as well as screws across the fibula proximally for better configuration. We then the medial side. We made our incision using fluoroscopy for the extended incision about a 7 to 10 mm 10 cm incision. Dissected out for starting to use a 15 blade dissected down tenotomies to the level of the fracture site which was debrided back with a bone pick. We then bent a one third tubular plate on the back table place it and had good reduction of the fr acture site we did place one 3.5 screw just proximal to the fracture site and then we placed a homerun screw for up 0.0 cancellus screw crossing the medial mall going up the shaft of the tibia. We then placed our remaining screws proximally and so that we had 3 above and then placed another 3 5 cortical across the fracture site we then placed another 3.5 screw across the fracture site and had good reduction of the fracture site. We then stressed the ankle we had gapping of the tibiofibular clear space as well as medial clear space consistent with a syndesmotic injury we then placed 4 oh cancellus screw across holding the ankle in neutral alignment. We had good reduction of our tib-fib clear space at that point again we did start from the lateral going medially through the fibula. We checked in multiple planes AP and lateral to confirm good reduction of our fracture as well as the posterior mall that was not articular was not causing a posterior force across the tibiotalar joint. We then irrigated the incision with copious amounts of sterile saline the incisions incisions laterally that we did close the fascia over the plate and then the subcutaneous was closed subcuticular was closed with 3-0 Vicryl and brayan medial side again closed the fascia over the plate as best we could and then placed 3-0 Vicryl and subcuticular and then brayan. We let the tourniquet after total time working time of 130 minutes. Sterile dressings were applied there is no bleeding patient taught procedure well no comp occasions were transferred to recovery room in stable condition next Postoperative note Next Nonweightbearing left lower extremity next Discussed with Pharmacy has pain with prescription Follow-up in 2 weeks with David or myself next Call with increased pain numbness tingling or further issues arise Dragon disclaimer this note was generated with [employer] dictation software. It may contain incorrect words, spelling, and punctuation that were not noted in checking the note before signing.
[2019-03-19 11:56] LABS: Bedside Glucose 260 mg/dL (70-110)
== END 2019-03-19 15:13 | disposition home or self-care (01) ==
LOC: SDC 06:11 → AC 06:12
PROVIDERS: Family Provider Family Medicine; PCP Family Medicine; Referring Provider Orthopaedic Surgery; Visit Provider Orthopaedic Surgery
PROC: (CPT 27814; principal; 2019-03-19 07:10)
DX: S82.852A Displaced trimalleolar fracture of left lower leg, initial encounter for closed fracture (principal); W10.9XXA Fall (on) (from) unspecified stairs and steps, initial encounter; Y93.9 Activity, unspecified; Y92.009 Unspecified place in unspecified non-institutional (private) residence as the place of occurrence of the external cause; Y99.9 Unspecified external cause status; E11.22 Type 2 diabetes mellitus with diabetic chronic kidney disease; N18.2 Chronic kidney disease, stage 2 (mild); E78.00 Pure hypercholesterolemia, unspecified; F41.9 Anxiety disorder, unspecified; F17.200 Nicotine dependence, unspecified, uncomplicated; Z79.4 Long term (current) use of insulin; Z79.899 Other long term (current) drug therapy; Z85.828 Personal history of other malignant neoplasm of skin
CPT/HCPCS: 27814; 64445; 73600; 76000; 80320; 82962; C1713; J7040; J7120; G0480; J2405

== ENCOUNTER → 2019-04-01 09:28 | Outpatient (CLI) | payer BC, SELFPAY ==
[2019-04-01 09:22] VITALS: BMI 26.9
--- NOTE | 2019-04-01 09:29 | RAD_ITS ---
STUDY: X-RAY - LEFT ANKLE REASON FOR EXAM: Fracture check, removal of cast. TECHNIQUE: 3 view(s) of the ankle. COMPARISON: Intraoperative images 03/19/2019 and radiographs 03/05/2019. FINDINGS: There are intact orthopedic plates and screws transfixing distal fibular and medial malleolar fractures in anatomical alignment and position. There is a nondisplaced posterior malleolar fracture. Normal tibiotalar articulation and ankle mortise. There is a plantar calcaneal enthesophyte. The visualized subtalar, talonavicular, calcaneocuboid and tarsal articulations are normal. There is soft tissue swelling. RAD/Ankle min 3 Views IMPRESSION: ORIF of trimalleolar fracture with maintenance of anatomic alignment and position. Electronically Signed: Perry Gonzalez MD at 9:54 EDT Tel , Service support ,
== END ==
LOC: HPRAD 09:28
PROVIDERS: Family Provider Family Medicine; PCP Family Medicine; Referring Provider Orthopaedic Surgery; Visit Provider Orthopaedic Surgery
DX: S82.899A Other fracture of unspecified lower leg, initial encounter for closed fracture (principal); X58.XXXA Exposure to other specified factors, initial encounter; Y93.9 Activity, unspecified; Y92.9 Unspecified place or not applicable; Y99.9 Unspecified external cause status
CPT/HCPCS: 73610